=== PATIENT | male | born 1965 | race Caucasian/White ===

== ENCOUNTER 2016-08-22 08:17 | Emergency (ER) | payer OTHER ==
[~2016-08-22] VITALS: Ht 172.7 cm; Wt 76.2 kg
[2016-08-22 09:24] LABS: ABSOLUTE BASOPHIL COUNT 0 /CUMM (0.0-0.2); ABSOLUTE EOSINOPHIL COUNT 0 /CUMM (0.0-0.7); ABSOLUTE GRANULOCYTE CT 15.7 /CUMM (1.4-6.5); ABSOLUTE LYMPH COUNT 0.3 /CUMM (1.2-3.4); ABSOLUTE MONOCYTE COUNT 0.8 /CUMM (0.10-0.60); BASOPHIL % 0 % (0.0-2.0); EOSINOPHIL % 0.2 % (0-5); GRANULOCYTE % 93.3 % (42.2-75.2); HEMATOCRIT 45.8 % (42-52); MEAN CORPUSCULAR HGB 30.5 PG (27.0-31.0); MEAN CORPUSCULAR VOLUME 89.9 FL (80.0-94.0); MEAN PLATELET VOLUME 8.3 FL (7.4-10.4); PLATELET COUNT 266 /CUMM (130-400); WHITE BLOOD CELL COUNT 16.8 /CUMM (4.8-10.8)
--- NOTE | 2016-08-22 09:27 | ED GI/GU/ABDOMINAL COMPLAINT ---
History of Present Illness General Chief Complaint: Nausea, Vomiting, Diarrhea Stated Complaint: +N/V SINCE 4AM Source: patient, family, old records Exam Limitations: no limitations Vital Signs & Intake/Output Vital Signs & Intake/Output Vital Signs Date Time Temp Pulse Resp B/P Pulse O2 O2 Flow FiO2 Ox Delivery Rate 08/22 1148 100.6 96 18 95/55 96 08/22 0948 Room Air Room Air 08/22 0821 98.8 78 18 106/73 97 Room Air Room Air Allergies Coded Allergies: Penicillins (UNKNOWN 08/22/16) Reconcile Medications [FLORANEF] 0.5 MG TAB 1 TAB PO D ADDISONS (Reported) Hydrocortisone (Cortef) 20 MG TABLET 1 TAB PO BID ADDISONS (Reported) Hyoscyamine Sulfate (Levsin-Sl) 0.125 MG TAB.SUBL 1-2 TAB SL Q4P PRN abdominal cramps Ondansetron (Zofran Odt) 4 MG TAB.RAPDIS 1 TAB SL TID PRN nausea and vomiting Triage Note: TRIAGE: 51 Y/O MALE PRESENTS WITH FAMILY C/O +N/+V SINCE 0400 THIS MORNING. ACTIVELY VOMITING IN WAITING ROOM. SELF-MEDICATED WITH 0.5CC DEXAMETHASONE. HISTORY OF ADDISONS DISEASE. RECEIVED A PHONE CALL FROM PATIENT'S ENDOCRINOLOGY OFFICE REQUESTING EMERGENCY DEPARTMENT TO GIVE FLUIDS AND STEROIDS. Triage Nurses Notes Reviewed? yes Onset: Morning Duration: hour(s):, continues in ED Timing: recent history Quality/Severity: vomiting Location: generalized abdomen Radiation: no radiation Activities at Onset: sleep Prior Abdominal Problems: similar symptoms Past Sexual History: Unobtainable at this time No Modifying Factors: none Associated Symptoms: abdominal pain, loss of appetite, nausea/vomiting HPI: 4 hours prior to admission patient awoke with nausea vomiting generalized body aches and gave himself an injection of dexamethasone for adrenal insufficiency. His family has been ill with GI bug. Denies fever chills abdominal pain chest pain cough shortness of breath headache dysuria rash bleeding. Past History Travel History Traveled to [place] past 21 day No Medical History Any Pertinent Medical History? see below for history Neurological: NONE EENT: NONE Cardiovascular: NONE Respiratory: NONE Gastrointestinal: NONE Hepatic: NONE Renal: NONE Musculoskeletal: NONE Psychiatric: NONE Endocrine: ADDISONS DISEASE Blood Disorders: NONE Cancer(s): NONE TELEPATHIST/Reproductive: NONE Surgical History Surgical History: non-contributory Psychosocial History What is your primary language Japanese Tobacco Use: Never used ETOH Use: occasional use Illicit Drug Use: denies illicit drug use Family History Hx Contributory? No Review of Systems Review of Systems Constitutional: Reports: see HPI, malaise. EENTM: Reports: no symptoms. Respiratory: Reports: no symptoms. Cardiovascular: Reports: no symptoms. GI: Reports: see HPI, nausea, vomiting. Genitourinary: Reports: no symptoms. Musculoskeletal: Reports: no symptoms. Skin: Reports: no symptoms. Neurological/Psychological: Reports: no symptoms. Hematologic/Endocrine: Reports: no symptoms. Immunologic/Allergic: Reports: no symptoms. All Other Systems: Reviewed and Negative Physical Exam Physical Exam General Appearance: well developed/nourished, alert, awake, anxious, moderate distress Head: atraumatic, normal appearance Eyes: Bilateral: normal appearance, PERRL, EOMI, normal inspection. Ears, Nose, Throat, Mouth: hearing grossly normal, dry mucous membranes Neck: normal inspection, supple, full range of motion, normal alignment Respiratory: normal breath sounds, chest non-tender, no respiratory distress, quiet respiration, lungs clear Cardiovascular: regular rate/rhythm, normal peripheral pulses, norml femoral pulses equa Peripheral Pulses: 4+ carotid (R), 4+ carotid (L), 2+ radial (R), 2+ radial (L) Gastrointestinal: soft, non-tender, no organomegaly, abnormal bowel sounds Male Genitals: normal genitalia Back: normal inspection, normal range of motion Extremities: normal range of motion, no ligament instability Neurologic/Psych: no motor/sensory deficits, awake, alert, oriented x 3, normal gait, normal mood/affect, store person II-XII nml as tested Skin: intact, normal color, warm/dry Core Measures ACS in differential dx? No Severe Sepsis Present: No Septic Shock Present: No Progress Differential Diagnosis: gastritis, pancreatitis, peptic ulcer Plan of Care: Orders Procedure Date/time Status MAGNESIUM 08/22 838 Complete LIPASE 08/22 838 Complete CORTISOL AM 08/22 838 Complete COMPREHENSIVE METABOLIC PANEL 08/22 838 Complete CBC WITHOUT DIFFERENTIAL 08/22 838 Complete ACTH Ref$ 08/22 08 Active Laboratory Tests 08/22/16 0855: Anion Gap 13, Estimated GFR > 60, BUN/Creatinine Ratio 22.0, Glucose 119 H, Calcium 9.5, Magnesium 1.8, Total Bilirubin 1.8 H, AST 20, ALT 31, Alkaline Phosphatase 60, Total Protein 6.9, Albumin 4.3, Globulin 2.6, Albumin/Globulin Ratio 1.7, Lipase 130, Cortisol AM Sample 1.1 L 08/22/16 0855: ACTH Stimulation Pending, CBC w Diff MAN DIFF ORDERED, RBC 5.10, MCV 89.9, MCH 30.5, RDW 13.0, MPV 8.3, Gran % 93.3 H, Lymphocytes % 1.8 L, Monocytes % 4.7, Eosinophils % 0.2, Basophils % 0 L, Absolute Granulocytes 15.7 H, Absolute Lymphocytes 0.3 L, Absolute Monocytes 0.8 H, Absolute Eosinophils 0, Absolute Basophils 0, Platelet Estimate ADEQUATE, Normocytic RBCs VERIFIED, Normochromic RBCs VERIFIED, PUBS MCHC 34.0 Initial ED EKG: none Departure Departure Time of Disposition: 1141 Disposition: HOME OR SELF CARE Condition: Stable Clinical Impression Primary Impression: Nausea and vomiting Qualifiers: Vomiting type: unspecified Vomiting Intractability: non-intractable Qualified Code: R11.2 - Nausea with vomiting, unspecified Referrals: GABINO MILLAN,MARY Nettles (PCP/Family) Additional Instructions: Clear liquids in small amounts for 12-24 hours until better Departure Forms: Customer Survey General Discharge Information Prescriptions: Current Visit Scripts Ondansetron (Zofran Odt) 1 TAB SL TID PRN nausea and vomiting #15 TAB Hyoscyamine Sulfate (Levsin-Sl) 1-2 TAB SL Q4P PRN abdominal cramps #30 TAB
[2016-08-22] MEDS ORDERED: CORTEF20 M1 PO (10:35)
[2016-08-22] MEDS ORDERED: [UNRECOGNIZED DRUG - OTHER] PO (10:37)
[2016-08-22] MEDS ORDERED: LEVSIN-SL0.125 MG SL (11:43)
[2016-08-22] MEDS ORDERED: ZOFRAN ODT4 M1 SL (11:43)
[2016-08-22 11:48] VITALS: BP 95/55
== END 2016-08-22 12:19 ==
LOC: ERH 08:17
PROVIDERS: Emergency Medicine
DX: R11.2 Nausea with vomiting, unspecified (principal); R10.84 Generalized abdominal pain; M79.1 Myalgia
CPT/HCPCS: 96361; 96374; 96375; 99291; J0131; J1100; J2405